=== PATIENT | female | born 1985 | race Caucasian/White ===

== ENCOUNTER 2017-05-08 12:34 | Emergency (ER) | payer OTHER ==
[2017-05-08 12:38] VITALS: BP 107/70; BMI 24.1
--- NOTE | 2017-05-08 13:21 | DR.GENAD ---
HPI - PCP Primary Care Physician: mari - Complaint/Symptoms Chief Complaint Doctors Comments: Patient denies trauma. She works as a supply teacher. The pain has been ongoing for one month. The pain is on the right side, sharp duration for one month modifying factor bending/turning. Chief Complaint:: patient stated she has been having lower back pain for a month. took kidney meds but she is still hurting - Source History Provided: Patient - Mode of Arrival Mode of Arrival: Ambulatory - Timing Onset of Chief Complaint: 04/12/17 PMH - PMH Past Medical History: No Past Surgical History: Yes Surgical History: Hysterectomy - Family History History of Family Medical Conditions: Yes Family Medical History: Cancer, Hypertension - Social History Does patient currently use any type of tobacco product: Yes Have you used tobacco products in the last 12 months: Yes Type of Tobacco Use: Cigarettes How many years tobacco product used: 15 Does any household member use tobacco: No Alcohol Use: None Do you use any recreational Drugs:: No Lives With: Family Lives Where: Home - infectious screening In the last 2 months have you had wt loss of >10#?: NO Have you had fever, night sweats or hemotysis?: No Have you traveled outside the country in the last 6 months?: No Isolation: Standard ROS - Review of Systems Eyes: No Symptoms Reported ENTM: No Symptoms Reported Respiratoy: No Symptoms Reported Cardiovascular: No Symptoms Reported Gastrointestinal/Abdominal: No Symptoms Reported Genitourinary: No Symptoms Reported Neurological: No Symptoms Reported Musculoskeletal: No Symptoms Reported Integumentary: No Symptoms Reported Hematologic/Lymphatic: No Symptoms Reported Endocrine: No Symptoms Reported Psychiatric: No Symptoms Reported All Other Systems: Reviewed and Negative PE - Vital Signs Vitals: Temperature 98.6 F Pulse Rate 91 Respiratory Rate 16 Blood Pressure 107/70 O2 Sat by Pulse Oximetry 100 - General Limitations: No Limitations General Appearance: Alert, In No Apparent Distress - Head Head Exam: Normal Inspection, Atraumatic - Eyes Eye exam: Normal Appearance, PERRL, EOMI - ENT ENT Exam: Normal Exam External Ear Exam: Normal External Inspection TM/Canal Exam: Bilateral Normal Nose Exam: Normal Nose Exam Mouth Exam: Normal Inspection Throat Exam: Normal Inspection - Neck Neck Exam: Normal Inspection, Full ROM - Chest Chest Inspection: Normal Inspection - Respiratory Respiratory Exam: Bilateral Clear to Auscultation - Cardiovascular Cardiovascular Exam: Regular Rate, Normal Rhythm - Abdominal Exam Abdominal Exam: Normal Inspection, Normal Bowel Sounds Abdominal Tenderness: negative: RUQ, RLQ, LUQ, LLQ, Epigastrium, Suprapubic, Diffuse, Mild, Moderate, Severe, Other - Extremities Extremities Exam: Normal Inspection, Full ROM - Back Back Exam: Normal Inspection, Tenderness (RLQ) - Neurologic Neurological Exam: Alert, Oriented X3, CN II-XII Intact - Psychiatric Psychiatric Exam: Normal Affect, Normal Mood - Skin Skin Exam: Warm, Dry, Intact ROR - XRAY XRAY Interpreted by: Radiologist (Lumbar x ray: no acute abnormality) - Diagnosis Discharge Problem: Muscle spasm of back - Discharge Plan Condition: Stable - Follow ups/Referrals Follow ups/Referrals: MYESHA CANCHOLA [Primary Care Provider] - 3 days - Instructions
--- NOTE | 2017-05-08 13:53 | RAD ---
HISTORY: Low back pain. Study: Lumbar spine 3 views Comparison: None. Findings: There is no evidence of acute fracture or subluxation. Vertebral body heights and alignment are withi n normal limits. Intervertebral disc spaces are well preserved. The spinous process are intact. The re is no significant facet arthropathy. No significant soft tissue abnormalities are identified. IMPRESSION: 1. No evidence of acute osseous injury to the lumbar spine. Reported By:
[2017-05-08] MEDS ORDERED: TORADOL 60 MG VIAL IM ONE (14:09)
[2017-05-08] MEDS ORDERED: TORADOL 60 MG VIAL ONE (14:15)
== END 2017-05-08 14:33 | disposition home or self-care (01) ==
LOC: ER 12:44
DX: M62.830 Muscle spasm of back (principal)
CPT/HCPCS: 72100; 96372; 99282; J1885